=== PATIENT | female | born 1935 | race Caucasian/White ===

== ENCOUNTER 2019-02-16 18:59 | Inpatient (IN) | payer OTHER, MEDICARE ==
[~2019-02-16] VITALS: Ht 172.7 cm; Wt 66.0 kg
[2019-02-16] MEDS ORDERED: ZOLOFT25 MG PO (21:51)
[2019-02-16] MEDS ORDERED: VESICARE 5 MG TA5 MG (21:52)
[2019-02-16] MEDS ORDERED: VITAMIN B-12500 MCG PO (21:55)
[2019-02-16] MEDS ORDERED: ATIVAN0.5 MG PO ×3 (21:58→22:02)
[2019-02-16] MEDS ORDERED: TYLENOL325 MG PO (22:04)
[2019-02-16] MEDS ORDERED: IPRAT-ALBUT 0.5-3 ML INH (22:07)
[2019-02-16] MEDS ORDERED: TIAZAC PO (22:12)
[2019-02-16] MEDS ORDERED: LASIX 20 MG TAB20 MG PO (22:13)
[2019-02-16] MEDS ORDERED: FLECAINIDE ACET50 M1 PO (22:13)
[2019-02-16] MEDS ORDERED: MEMANTINE HCL E14 MG PO (22:15)
[2019-02-16] MEDS ORDERED: KLOR-CON 1010 MEQ PO (22:16)
--- NOTE | 2019-02-17 03:38 | NUR ---
ARRIVED A DIRECT ADMIT FROM [facility] ER VIA [facility] X2 EMT ON A STRETCHER @ 20:15 ON 02/16/19. ADMITTING DIAGNOSIS MAJOR NEUROCOGNITIVE AND BEHAVIOR DISORDERS. DNR WITH DAUGHTER HEIDE TORREZ. REFERRED TO [facility] FOR VEIGN VERY AGITATED, YELLING AT STAFF CALLING OFFENSIVE NAMES, INCREASED DEMENTIA AND STAFF AT N.. AT [facility] STRUGGLING TO MANAGE PT MED CHANGES. VS 112/88 93 64 18 93% ON RA WEIGHT 143.3 POUNDS ON BED SCALE. PIN SIZE WHOLE IN SKIN ON COXXYX. BRUISE TO R KNEE AND L LE, BRUISE TO RIGHT WRIST. SLEPT FOR SEVERAL HOURS, THEN AWOKE AND REQUESTED FOOD, SNACK PROVIDED. QUIETED DOWN FOR AN HOUR THEN AWOKE, WAS CONFUSED AND AGITATED AND ANXIOUS, PROVIDED 0LANZAPINE 5MG FOR AGITATION AND LORAZEPAM 0.5MG FOR ANXIETY. PROVIDED ANOTHER SNACK, AN ENSURE BEVERAGE AT PT REQUEST, SHE RELAXED AND SLEPT. BED IN LOW POSITION AND ALARM ON, WILL CONTINUE TO MONITOR Q12 MIN FOR PATIENT SAFETY.
[2019-02-17 04:57] VITALS: BP 112/88
--- NOTE | 2019-02-17 06:21 | NUR ---
SLEPT 5.2 HOURS
[2019-02-17] MEDS ORDERED: VITAMIN D1000 UNI1 PO (07:51)
[2019-02-17] MEDS ORDERED: RIVASTIGMINE3 MG PO (07:53)
[2019-02-17] MEDS ORDERED: MELATONIN3 MG PO (07:54)
[2019-02-17] MEDS ORDERED: ZANTAC 150MG T150 MG PO (07:55)
[2019-02-17] MEDS ORDERED: COUMADIN 2.5MG2.5 M1 PO (07:55)
[2019-02-17 08:00] VITALS: BP 118/58
[2019-02-17 14:03] LABS: INR 2.8; PROTIME 29.5 Seconds (9.3-11.4)
[2019-02-17 14:56] VITALS: BP 118/80
--- NOTE | 2019-02-17 16:48 | NUR ---
PATIENT HIGH FALL RISK - UNSTEADY ON FEET. NEEDS MONITORING WHEN AMBULATING WITH WALKER. TOOK MEDICATIONS READILY TODAY. NO AGITATION OR AGGRESSION OR YELLING NOTED. DOES BECOME RESTLESS AND WANDERS NEEDING REDIRECTION. NEEDS ENOCURAGEMENT AND HELP WITH MEALS. PATIENT DENIES ANY S/I - CONFUSED - ANSWERS EVERYTHING DON'T KNOW WHAT TO DO NEXT. PATIENT SLEPT FOR AN HOUR IN AFTERNOON. DOES NOT KNOW HER LIMITATIONS - DR. PABON SPOKE WITH DAUGHTER ON MEDICAITON RECONCILATION. MADE ADJUSTMENTS.
[2019-02-17 19:26] VITALS: BP 140/58
--- NOTE | 2019-02-17 21:37 | NUR ---
Pt restless in day room this eloy. Up and down from chair, pt is redirectable with min assistance. Pt provided w/c for self propel, pt very unsteady with walker. Pt compliant with hs meds and assisted with hs snack. Pt tried to drink from her straw and lick her ice cream. Pt compliant with bsc and hs adl care. Good eye contact, blunted affect. Speech clear but sentences not comprehensible.
--- NOTE | 2019-02-17 22:00 | NUR ---
PT AWAKENED WHEN FIREWORKS STARTED. PT WAS CALLING OUT AND TOOK MY HAND HELD IT AND WIHT HER OTHER HAND WAS OPENING AND CLOSING THE HAND. PT STARTED POINTING AT HER THIGHS AND GRIMACED, PRN TYLENOL PROVIDED.
--- NOTE | 2019-02-17 23:35 | NUR ---
Daughter called stating she will be in tomorrow with a list of previous medications. She stated Dr Benson is no longer her mothers dr at the [facility] facility. She also stated she does not want her mother on sinement.
[2019-02-18 08:23] VITALS: BP 110/70
--- NOTE | 2019-02-18 15:07 | NUR ---
ORIENTED TO NAME ONLY-SPEECH/CONVERSATION GARBLED AND DIFFICULT TO FOLLOW-INCOMPREHENSABLE AT TIMES AT TIMES RELEVENT AND GOAL DIRECTED. AMBULATES WITH USE OF ROLLER WALIKER AND SBA X 1-DENIES C/O PAIN DISCOMFORT-ABLE TO FEED SELF.
--- NOTE | 2019-02-18 18:30 | NUR ---
DID BECOME AGITATED AFTER SONS DEPARTURE FROM UNIT AT 1700-REFUSING TO EAT,RUNNING WHEELCHAIR INTO TABLES IN DINING ROOM-RAISED VOICE AND ANGRY FACIAL EXPRESSION-SAT 1;1 WITH PATIENT FOR APPROX 55 MINUTES OFFERING SUPPORT,REASSURANCE AND REORIENTATION. ZYPREXA 5MG ODT GIVEN PO AT 1730-CALMER BY APPROX 1830-GIVEN LATE SUPPER TRAY AND ASSISTED TO BED
[2019-02-18 19:16] VITALS: BP 116/54
--- NOTE | 2019-02-19 00:47 | NUR ---
PATIENT LAYING AWAKE I DID ROOM CHECK ON PATIENT. SHE MOTIONED TO HER LEFT LEG AND INDICATED PAIN OR DISCOMFORT. PATIENT UNABLE TO GET APPROPRIATE WORDS TO USE. REPOSITIONED PATIENT AND MASSAGED LEG. NO WARM/RED SPOTS. PATIENT WAS ABLE TO SAY YES WHEN ASKED IF SHE WOULD LIKE SOMETHING FOR PAIN. TYLENOL 650MG GIVEN WITH YOGURT AND WATER. PATIENT WAS BACK TO SLEEP WITHIN 10 MINUTES AND SLEEPING SOUNDLY. WILL CONTINUE TO MONITOR.
--- NOTE | 2019-02-19 01:45 | NUR ---
PT TALKING OUT LOUD. WENT TO CHECK ON HER. SAT HER UP AND SHE VOIDED IN BSC. PLACED PATIENT BACK IN BED AND SHE GROANED AND SAID HER LEFT LEG WAS HURTING. ASSESSED IT AND SEEMS TO BE GENERALIZED IN HER THIGH/KNEE AREA. HURT TO RUB BUT NOT RED OR WARM SPOTS. NO SOB. REPOSITIONED AND PLACED PILLOW UNDER IT WHICH DID BRING GREAT RELIEF. PATIENT THEN STATES SHE IS HUNGRY. FED PATIENT A VANILLA YOGURT. SHE DOESN'T MAKE MUCH SENSE WHEN SHE TALKS BUT SHE KEPT SAYING SHE IS JUST OLD AND SHE IS NOW 89 YEARS OLD AND THERE'S NOTHING THAT CAN BE DONE FOR HER ACHES AND PAINS. PATIENT RESTLESS. GAVE HER OLANZAPINE 5MG ODT PRN AND COVERED HER WITH EXTRA BLANKET BECAUSE SHE WAS COOL SHE SAID. PATIENT ANSWERS YES WHEN ASKED IF SHE IS COMFORTABLE NOW. LET HER KNOW I WOULD BE BACK TO KEEP CHECKING ON HER AND THAT SHE IS SAFE. PATIENT SAYS THANK YOU. WILL CONTINUE TO MONITOR.
[2019-02-19 11:13] VITALS: BP 123/63
--- NOTE | 2019-02-19 11:24 | NUR ---
ASSUMED CARE AT 0700 THIS MORNING. PT. UP IN W/C ON UNIT FOR BREAKFAST AND MORNING MEETINGS. IS NOT FEEDING HERSELF, SHE IS TOO DISORGANIZED. STAFF ASSISTED HER IN EATING. SPEECH IS WORD SALAD AND GARBLED. SHE WILL SIT AND LISTEN WHEN YOU TALK TO HER IF SHE UNDERSTANDS WHAT YOU ARE SAYING AND IS ABLE TO FOLLOW SIMPLE COMMANDS. DID ATTEND MORNING MEETINGS, BUT UNABLE TO PARTICIPATE. SHE SAT AND LISTENED THOUGH. AT TIMES SHE LOOKED IF SHE WOULD LIKE TO DO THE OTHER PATIENTS DID (STRETCHING EXERCISES), BUT UNABLE TO DO MUCH. VSS. NO S/S SI/HI. UNABLE TO DETERMINE IF PT HAS AUDITORY OR VISUAL HALLUCINATIONS OR NOT. MEDICATIONS WERE CRUSHED AND PUT IN PUDDING. SHE DID EAT THE PUDDING WITHOUT PROBLEMS NOTED.
--- NOTE | 2019-02-19 16:54 | NUR ---
PT was unable to complete psysocial assessment with ADRIANNA. However Merly, Pt's daughter was avaliable by phone to complete the assessment. Sw completed assessment with Merly. Merly and her brother Andres are have completed a medicaid application on Pt's behave. They have cricket dealing with mediciad for the past 7 months. According to Merly, Pt has battled depression and Anxiety since the age of 20. Pt was seeing a phychiatrics at [facility] until Pt went to SNF about 2 years ago. Adrianna assured Merly, that Pt has been calm today and engaged when encountered. Merly had no other questions or concerns at this time.
[2019-02-19 19:31] VITALS: BP 114/50
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
[2019-02-20 07:00] VITALS: BP 108/56
[2019-02-20 10:40] VITALS: BP 108/56
--- NOTE | 2019-02-20 11:34 | NUR ---
ASSUMED PATIENT CARE AT 0715. PATIENT ASSISTED UP X 1 STAFF, ATE 75%-90% OF BREAKFAST. TOOK MEDICATIONS WHOLE IN YOGURT WITH SIPS OF WATER. SAT THROUGH RECREATIONAL THERAPY; NURSE DID NOT GET REPORT FROM R.T. TO PATIENT'S PARTICIPATION. NURSE RE-ASSESSED PATIENT'S EARS WITH DR. PABON'S OTOSCOPE, WAX REMAINING, WHICH APPEARS SOFT. HOWEVER, NO IRRIGATION TOOLS AVAILABLE, PER DIRECTOR NEWS AND PHARMACY. PATIENT CALM, COMOPERATIVE, NO AGITATION OR IRRITATION TO DATE THIS SHIFT. CONTINUE TO MONITOR.
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
[2019-02-20 19:18] VITALS: BP 133/63
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
--- NOTE | 2019-02-21 00:41 | NUR ---
Care assumed of patient at 1900: Patient up in w/c at start of shift in day room. Patient anxious at times. Patient propelling w/c about the unit and in other patient rooms. Requiring re-direction occasionally. Patient reporting that she does not feel well. Patient unable to state what is bothering her to not feel well. VS stable. Patient ate 25% snack provided. Declined to eat her dinner. Patient took medication with no issues. Patient confused and forgetful. No aggression or agitation observed this shift. Patient was able to follow simple one step directions. Patient overall pleasant and cooperative. Patient went to bed without difficulty. Patient woke up at approximately 2355 with one episode of emesis. Moderate amount of emesis, light brown in color. Patient had ate peanut butter and crackers earlier in the evening. Patient cleaned up and linens changed. Patient reported that she felt better and would go back to sleep. Patient is resting quietly at this time.
[2019-02-21 01:31] LABS: HEMATOCRIT 35.3 % (37.0-47.0); HEMOGLOBIN 11.7 gm/dL (12.0-15.0); MCH 29.6 pg (26.0-34.0); MCHC 33.1 g/dL (28.0-37.0); MCV 89.5 fL (80.0-100.0); RBC 3.95 mil/uL (4.20-5.00); RDW 15.1 % (10.5-14.5); WBC 10.2 thou/uL (4.0-11.0)
[2019-02-21 01:39] LABS: PROTIME 13.9 Seconds (9.3-11.4)
[2019-02-21 01:41] LABS: INR 1.3
[2019-02-21 08:32] VITALS: BP 108/57
[2019-02-21 14:50] VITALS: BP 133/63
--- NOTE | 2019-02-21 15:01 | NUR ---
ASSUMED CARE AT 0700 TODAY. PT. IN BED ASLEEP AFTER N&V MOST OF THE NIGHT. SHE REFUSED TO GET UP FOR BREAKFAST, SLEPT ALL MORNING. THE ONELY MEDS THIS RN WAS ABLE TO GET HER TO TAKE THIS MORNING WAS OLANZAPINE. DR. PABON AND HOSPITALIST NOTIFIED OF SAME. AT LUNCH THIS RN WENT IN AND GOT PT. DRESSED AND BROUGHT HER TO THE DINING ROOM. SHE ATE ABOUT 50% LUNCH. HER SKIN TOME IS PALE. SHE SAT ON THE UNIT THIS AFTERNOON. SHE HAD ICE CREAM FOR 2 PM SNACK. SHE WAS AWAKE AND ALERT ALL AFTERNOON, SITTING QUIETLY. AMANDA SI/HI. NOT NOTABLE S/S AVH NOTED. DID NOT ATTEND AFTERNOON GROUP THOUGH.
[2019-02-21 19:43] VITALS: BP 120/70
--- NOTE | 2019-02-21 22:29 | NUR ---
ASSUMED CARE OF THE PT AT 1900 PM. THE PT WAS SITTING IN THE DAYROOM IN HER WHEELCHAIR. SHE TOOK HER MEDICATIONS CRUSHED IN APPLESAUCE WITHOUT ANY DIFFICULTY. HEART RATE REGULAR. LUNGS CLEAR BILATERALLY, RESP., EVEN, AND UNLABORED. +BS HEARD IN ALL 4 QUADRANTS. REMAINS ON 12 MINUTE CHECKS FOR HER SAFETY.
--- NOTE | 2019-02-22 06:27 | NUR ---
THE PT SLEPT 9 HOURS LAST NIGHT.
--- NOTE | 2019-02-22 09:14 | NUR ---
0720: Report rec from noc shift, care assumed. 0900: Assisted x2 staff with transfer from bed to w/c, cooperative with staff. To via w/c, oriented to name, minimal verbal response from pt when inquiring about pain or needs. Feeds self with set-up assist and encouragement to eat, takes meds crushed in applesauce w/o difficulty. Denies nausea or stomach discomfort. Attends 0900 group, pleasant, minimal participation noted.
[2019-02-22 09:19] VITALS: BP 94/67
--- NOTE | 2019-02-22 16:12 | NUR ---
ADRIANNA met with the Health Coordinator at [facility]. ADRIANNA was told that the pt may not be acceptable to the [facility]. ADRIANNA explained that if the pt was not given a proper notice jjuliane, she would have to be accepted into [facility] or there will be hotline to [facility]. The healthcare coordinator mention that she will follow-up with SW after speaking with the adminstrator. ADRIANNA will follow-up with [facility] on tomorrow, February 23, 2019
--- NOTE | 2019-02-22 16:24 | NUR ---
ADRIANNA sent a securities consultant to [facility] to assist with comfort care.
[2019-02-22 19:21] VITALS: BP 111/61
--- NOTE | 2019-02-23 00:41 | NUR ---
Care assumed of patient at 1900: Patient resting in bed at start of shift. Staff offered to assist patient get up out of bed and have a snack in the day room. Patient stated she would like to get up. Max assist x2 provided for transfer to /. Patient ate approximately 75% snack. Enjoyed sitting with other peers and staff. Patient took medications crushed without any issue. Patient pleasant and cooperative. Patient had periods where she would speak clearly then others where she was speaking word salad. Patient encouraged to slow down and focus. Patient apologetic. She was then able to answer questions more clearly. Patient anxious at times when speaking with her. Confused and forgetful. Attempted to suck on spoon like it was a straw when eating jello. Required occasional directions while eating. Alert and oriented to person only. Blunted affect, disorganized thoughts. Patient incontinent of bladder. Patient again apologetic, stating that it is hard to be "89 something years old". No agitation or aggression observed this shift. Resting quietly in bed at this time.
[2019-02-23 07:49] VITALS: BP 136/55
--- NOTE | 2019-02-23 07:55 | NUR ---
0700: Report rec from noc shift, care assumed. Resting in bed, laying on Rt side, bed alarm on, bedrails up x4, awakens readily to verbal stimuli. Skin cool, color pale. 0800: Assisted to w/c from bed with assist x2 staff, pt weak, minimal weight bearing noted, confused, oriented to name only, but cooperative with staff. To via w/c
[2019-02-23 20:14] VITALS: BP 148/72
--- NOTE | 2019-02-23 20:38 | NUR ---
ASSUMED CARE @ 1900, SITTING IN W/C IN FRONT OF THE TV. DOES NOT SEEM TO BE WATCHING TV, JUST LOOKING FORWARD INTO THE ROOM. A&O X 1 ABLE TO VERBALIZE HER FIRST NAME ONLY. SPEACH RAMBLING, BLUNTED AND DIFFICULT TO UNDERSTAND. INCONTINENT, NO BM TODAY. TAKES MEDS CRUSHED IN PUDDING. VSS HRRR, LUNGS CTA, AABD NORMOACTIVE. HX OF COFFEE GROUND EMESIS. NO EMESIS TODAY. WILL CONTINUE TO MONITOR Q 12 MINUTES.
--- NOTE | 2019-02-23 23:44 | NUR ---
SCHEDULED MEDICATIONS PROVIDED. PRN MORPHINE S.L. 10 MG PROVIDED @ 22:20. OLANZAPINE S.L. PROVIDED @ 22:20. ONDONSTATEN 4 MG PROVIDED FOR NAUSEA. EAR DROPS INSTILLED WITHOUT DIFFICULTY. NO BEHAVIORS NOTED. WILL CONTINUE TO MONITOR Q 12 MINUTES FOR PATIENT SAFETY.
[2019-02-24 07:15] VITALS: BP 119/56
[2019-02-24 07:30] VITALS: BP 119/56
--- NOTE | 2019-02-24 07:30 | NUR ---
PT OUT TO DINNING ROOM. PT HAS SMILE OF FACE. PT IN W/C WITH AARON SAINZ. RIDING TEACHER STATED THAT SHE HAD A BM THIS AM MED AMOUNT. PT HAS ISSUES WITH HER STOMACH AND COMPLAINING PAIN, STATED IT HURTS DOWN.
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
--- NOTE | 2019-02-24 14:30 | NUR ---
PT UP TO BSC TO PASS GAS. PT STATED SHE DOESN'T FEEL GOOD. PT HOLDING STOMACH. PT SLOW TO GETTING UP AND TURNING, UP X2 ASSIST. PT STATED SHE WOULD LIKE TO LAY DOWN. PT BELCHING AT TIMES.
--- NOTE | 2019-02-24 14:56 | NUR ---
AFTER SITTING ON BSC, PT HAD MED BM SOFT. PT LAYED DOWN FOR NAP AFTER USING BSC.
--- NOTE | 2019-02-24 16:16 | NUR ---
SW sent a referral to [facility] per family request. ADRIANNA will follow-up with [facility] to see if pt can be evaluated on tomorrow, February 25, 2019.
--- NOTE | 2019-02-24 16:50 | NUR ---
AYDIN HERE TO VISIT. PT VERY HAPPY FOR THE VISIT. PT HAD SOME SPIT UP OF YELLOW/GREEN BILE TWICE.
--- NOTE | 2019-02-24 17:00 | NUR ---
ASSISTED PT UP TO W/C. PT HAVING SOME BELCHING. GAVE PT DIET LEMON-PILOT POINT SODA AND SALTINE CRACKERS, PT WAS VERY APPRICIATED.
[2019-02-24 19:29] VITALS: BP 120/72
--- NOTE | 2019-02-24 22:17 | NUR ---
PT ASLEEP IN W/C IN DAY ROOM UPON ARRIVAL TO SHIFT. HS MEDS PROVIDED AND PT LAYED DOWN TO BED WITH ALARM ON. POOR EYE CONTACT WITH INTERACTIONS, BLUNTED AFFECT.
[2019-02-25 09:09] VITALS: BP 104/42
--- NOTE | 2019-02-25 10:55 | NUR ---
0700: Report rec from noc shift,care assumed. 0800: Assisted to w/c from bed with staff x1, gait weak. To DR via w/c, feeds self with set-up assist, appetite poor, takes 1-2 bites of food, takes meds crushed in pudding with difficulty and resistance. Cooperative with staff,affect is flat, short attentions span and confusion noted. 0900: To therapy group, minimal participation noted. Denies nausea or discomfort at this time.
--- NOTE | 2019-02-25 13:59 | NUR ---
ADRIANNA sent a referral to [facility] per the [facility][1] request. ADRIANNA spoke with Zhanna in she mention she revievew the referral, and will be in contact on February 28, 2019.
--- NOTE | 2019-02-25 14:32 | NUR ---
Date of Admission: 02/16/19 Date of Activity Therapy Assessment: 02/19/19 Activity Goal: Increase engagement Initial Goal: 1 Group activity/day Weekly progress towards goal: On track Group participation level: Minimal Behaviors observed: Patient participates in a minimum of 1 recreational therapy group per day though participation is minimal d/t low cognition. Patient presents smiling and pleasant. No aggression noted. Plan: No change towards goal
[2019-02-25 19:40] VITALS: BP 112/59
--- NOTE | 2019-02-25 23:34 | NUR ---
PT AWAKENED TO URINATE ASSISTED TO BSC AND COMPLIANT. PT RETURNED TO BED, YELLING OUT THAT SHE WANTS TO BE YOUNG, CRYING SPEECH NOT CLEAR,CURSING. KICKING LEGS, PRN PAIN PROVIDED. STAFF SAT WITH PT FOR DIVERSIONAL CONVERSATION, OFFERED SNACKS, BEHAVIOR DID NOT SETTLE PRN FOR AGIATION PROVIDED.
--- NOTE | 2019-02-26 01:30 | NUR ---
PT REMAINED AWAKE RESTLESS TALKING TO SELF AND WAS TAKEN TO DAY ROOM FOR DISTRACTION AND A SNACK. ONCE PT WAS FALLING ASLEEP IN DAY ROOM, SHE WAS ASSISTED BACK TO BED.
[2019-02-26 07:30] VITALS: BP 99/43
--- NOTE | 2019-02-26 10:09 | NUR ---
ASSUMED PATIENT CARE AT 0700. PATIENT DRESSED,ASSIST TIMES ONE. ATE 75% OF BREAKFAST, BLUNT FACIAL EXPRESSION, FLAT AFFECT, DROSY MOOD. TOOK A.M. MEDICATIONS WHOLE WITH WATER. SAT THROUGH A.M.GROUP, NON-PARTICIPATORY.
[2019-02-27 00:39] VITALS: BP 99/43
--- NOTE | 2019-02-27 04:12 | NUR ---
PT OUT IN DAY AREA AT [facility] OF SHIFT, BUT ON THE EDGE OF THE GROUP. SUSPICIOUS, BUT TOOK HS MEDS PRESCRIBED. ALLOWED STAFF TO ASSESS, AND DO VS. ESCORTED TO ROMM AND ASSISTED WITH TOILETING. SLEPT WELL THROUGH THE NIGHT
[2019-02-27 08:00] VITALS: BP 107/46
--- NOTE | 2019-02-27 11:41 | NUR ---
ASSUMED CARE OF PT @ 0700. ASSISTED W/AM CARE W/ASSIST OF ONE. TRANSPORT VIA WHEELCHAIR - MOANING AND COMPLAINING OF GENERALIZED PAIN THIS AM -RECEIVED PRN MEDS PER ORDER. RESTED QUIETLY FOLLOWING WITHOUT FURTHER DISTRESS NOTED. ATTENDING AM GROUP W/NO PARTICIPATION. VISITOR PRESENT DURING VISTATION. NO ACUTE DISTRESS NOTED. CONTINUE TO MONITOR THROUGHOUT SHIFT.
--- NOTE | 2019-02-27 15:19 | NUR ---
ADRIANNA sent updates to [facility] [phone] ([phone] and [facility] [phone] (f) [phone]
--- NOTE | 2019-02-27 18:02 | NUR ---
SPENT MAJORITY OF SHIFT IN DAYROOM. EASILY AGITATED BY PEERS WHEN STIMULI IS INCREASED. STAFF ATTEMPTED REDIRECTION VERBALLY AND REMOVED TO QUIETER AREA BUT INTERVENTIONS WERE NOT SUCCESSFUL IN DECREASING AGITATION AND PT RECEIVED GEODON IM PRN PER ORDER WHICH WAS EFFECTIVE IN REDUCING AGITATION. MARYAN CARE PROVIDED PRN. NO ACUTE DISTRESS NOTED. CONTINUE TO MONITOR.
[2019-02-27 22:00] VITALS: BP 109/60
[2019-02-27 23:00] VITALS: BP 109/60
--- NOTE | 2019-02-28 01:32 | NUR ---
ASSUMED CARE @ 19:00. IN W/C IN DAY ROOM. PROPELLING SELF IN W/C AROUND THE FRONT OF THE ROOM UNDER THE TV SET. TOOK 2100 MEDS CRUSHED IN ICE CREAM. LAID DOWN @ 22:30, EYES CLOSED RESPIRATIONS EVEN AND UNLABORED. AWOKE @ 0030 C/O FEELING BAD. GIVEN [place] 4 MB ODT AND MORPHINE SULFATE 10 MG. CONTINUES TO BE AWAKE AND C/O FEELING BAD, CANNOT SAY WHAT FEELS BAD. TOILETED ON THE BSC, URINE OUTPUT NOTED. RETURNED TO BED. WILL CONTINUE TO MONITOR.
--- NOTE | 2019-02-28 01:37 | NUR ---
INCREASED AGITATION AND PHYSICAL VIOLENCE NOTED. NEW ORDER FOR HALDOL IM 5 MG OBTAINED FROM Dell ARANGO [employer] HE[employer] NURSING DIRECTOR AND PROVIDED WITH X3 ADDITIONAL ASSIST. WILL CONTINUE TO MONITOR.
--- NOTE | 2019-02-28 03:56 | NUR ---
IN BED EYES CLOSED, RESPIRATIONS EVEN AND UNLABORED. BED IN LOW POSITION, ALARM SET, WILL CONTINUE TO MONITOR Q 12 MINUTES FOR PT SAFETY.
--- NOTE | 2019-02-28 05:57 | NUR ---
SLEPT 6.4 HOURS TOTAL.
[2019-02-28 07:55] VITALS: BP 109/57
[2019-02-28 13:24] VITALS: BP 109/57
--- NOTE | 2019-02-28 17:04 | NUR ---
ADRIANNA spoke with pt daughter concerning sending a referral to [facility]. SW mention that she will send a referral on tomorrow, February 28, 2019. ADRIANNA explained that there need to be referrals sent to [facility]. ADRIANNA explained that [place] medicaid is causing [facility] to deny her mother. SW will follow-up with pt family on later this week.
--- NOTE | 2019-02-28 17:56 | NUR ---
ASSUMED CARE AT 0700 THIS MORNING. PT. CALM MOST OF THE DAY. ABOUT 1645 SHE STARTED FUSSING AT A PEER, POUNDING ON THE TABLE, STATING NO ONE WILL HELP HER. SHE COULD NOT STATE WHAT THE HELP SHE NEEDED WAS. SHE WAS GIVEN SL OLANZAPINE AT 1730. SHE WANDERS INTO PEERS ROOMS AND IS IRRITABLE WHEN SHE WAS REMOVED FROM THE ROOMS. NO S/S SI/HI OR AVH. TOOK MEDS WITHOUT PROBLEMS FOR THIS RN.
[2019-02-28 20:13] VITALS: BP 110/60
[2019-02-28 23:30] VITALS: BP 110/60
--- NOTE | 2019-03-01 01:53 | NUR ---
ASSUMED CARE @ 1900, IN W/C WITH AARON SAINZ IN PLACE IN THE DAY ROOM. COOPERATED WITH ASSESSMENT AND HS MEDS IN PUDDING. A&O X 1 CONFUSED TO DATE, LEADERSHIP AND REASON FOR HOSPITALIZAITON. MARKO IS CONFUSED AND UNCLEAR. WILL CONTINUE TO MONITOR Q 12 MINUTES FOR PATIENT SAFETY.
--- NOTE | 2019-03-01 05:16 | NUR ---
Patient was assisted to bed at 2030 on 02/28/19. Patient asked for the lights to be kept on. The lights were kept on. Patient changed into a gown, assisted to the bathroom then tucked into bed. Patient did state she was tired and wanted to lay down. Patient sat up soon after and started to yell. Staff asked patient if she wanted to get back up, patient yelled no. Patient attempting to stand and walk independently. Patient would not allow for staff to assist her. Patient continued to scream at staff, kick at staff and hit staff. Multiple staff attempted to re-direct patient. Not effective. Nurse administered Geodon 10mg IM at 2102. Nurse sat with patient for approximately 10 minutes, talking to her, trying to calm her down and divert her attention. Patient was able to fall asleep at approximately 2130 and has been resting quietly throughout the shift. Patient's daughter did call at 0500 this AM. Daughter asked if patient had been tested for a UTI. UA was completed at [facility] on 02/15/19 prior to admission which was negative for UTI. Will pass on to day shift RN.
--- NOTE | 2019-03-01 06:08 | NUR ---
SLEPT 9 HOURS.
[2019-03-01 09:07] VITALS: BP 106/42
[2019-03-01 09:58] VITALS: BP 106/42
--- NOTE | 2019-03-01 10:12 | NUR ---
ASSUMED CARE AT 0700 THIS MORNING. PT. IN THE DINING ROOM, PULLED DOWN HER PANTS AND URINATED ON THE FLOOR. STAFF TOOK HER TO THE BATHROOM. SHE HAD A LARGE BOWEL MOMENT. SHE WAS CLEANED UP AND TAKEN TO THE DINING ROOM FOR BREAKFAST. SHE ATE ON THE UNIT. TOOK HER MEDS WITHOUT PROBLEMS NOTED. DENIES SI/HI. BUT TALKS ABOUT HEARING VOICES.
[2019-03-01 20:20] VITALS: BP 102/56
--- NOTE | 2019-03-02 06:14 | NUR ---
PATIENT SLEPT 7.2 HOURS LAST NIGHT.
[2019-03-02 08:00] VITALS: BP 116/63
--- NOTE | 2019-03-02 11:17 | NUR ---
Nutrition: pt seen per followup on [facility] unit. Vomiting is resolved and pt eating variable amounts of meals, average 50%. Per team meeting this morning pt took more initiative/showed more interest at breakfast in feeding self. Takes sporadic amounts of supplements. WIll trial ensure enlive in addition to ensure pudding due to fair intake. Weight is up 4# from previous eval. Pt on lasix and pointed out fluid retention in legs. Regular diet, would not rec further diet restrictions in hospice pt. Change status to low risk.
--- NOTE | 2019-03-02 12:06 | NUR ---
ADRIANNA sent a referral to [facility]. ADRIANNA attn: to Luc Calixto. ADRIANNA will follow-up with the [facility] on tomorrow, March 03, 2019. Pt is ready to d/c once accepted into [facility].
--- NOTE | 2019-03-02 14:21 | NUR ---
Date of Admission: 02/16/19 Date of Activity Therapy Assessment: 02/19/19 Activity Goal: Increase self esteem and social engagement Initial Goal: 1 Group activity/day Weekly progress towards goal: On track Group participation level: Minimal Behaviors observed: Patient attends most morning groups though she falls asleep nearly every group upon beginning to end. Patient often exhibits frustration and agitation in the afternoon, making attendance to groups minimal. Plan: No change towards goal
--- NOTE | 2019-03-02 15:03 | NUR ---
ASSUMED PT CARE REPORT RECEIVED FROM NURSE. PT IS VERY CONFUSED. OUT OF BED WITH NURSING STAFF HELP. PT REMAINS ON WHEELCHAIR DURING DINING TIME. VSS. PT DENIES PAIN. PT LOOKS DROWSY IN THE EARLY AM. NO COMPLAINT. WILL CONTINUE TO MONITOR
--- NOTE | 2019-03-02 17:03 | NUR ---
pt abdomen is distended and pt vomited small amount of yellow vomit. zofran and mylanta given.
[2019-03-02 19:32] VITALS: BP 160/91
--- NOTE | 2019-03-02 20:21 | NUR ---
PATIENT SITTING UP IN BED. PATIENT HAD ZOFRAN AT 1500 AND MYLANTA AT 1700. PATIENT WITHOUT NAUSEA OR VOMITING BUT STATES ACHY ALL OVER. COOL TO TOUCH AFEBRILE. BLE'S WITH 2+ NONPITTING EDEMA, COOL TO TOUCH. TRYING TO ENCOURAGE BM. HAS HAD GAS PAINS TODAY AND SMALL BM ACCORDING TO DAY REPORT. HAD PATIENT'S HEAD ELEVATED 45 DEGREES UP AND ELEVATED FEET. PATIENT MORE COMFORTABLE ON RIGHT SIDE. TYLENOL 650MG WITH APPLESAUCE GIVEN. TOOK HALF OF CRUSHED DOSE AND SIP OF WATER. COULD NOT TOLERATE ANYMORE BY PO. SPOKE WITH INSTALLER TECHNICIAN'S REGARDING KEEPING PATIENT COMFORTABLE AND HOB AND FEET ELEVATED D/T EDEMA, N/V FROM EARLIER TODAY. WILL REMEDICATE NEEDED AT NEXT AVAILABLE MED TIME. MONITORING PATIENT CLOSELY. BOWEL SOUNDS ACTIVE LEFT UPPER ABDOMEN QUAD AND HYPO IN OTHER 3 QUADS.
--- NOTE | 2019-03-02 23:04 | NUR ---
THIS EVENING PATIENT IS STILL RESTING IN BED. MEDS WERE GIVEN CRUSHED AND IN MYLANTA. PATIENT ABLE TO TOLERATE SMALL SIPS OF WATER. PATIENT HAS BEEN REPOSITIONED IN BED BUT FAVORS HER RIGHT SIDE AND MOVES HERSELF INTO THIS POSITION. PATIENT GETS NAUSEATED AND HURTS WHEN MOVED AROUND. HAS NOT VOIDED OR BEEN ABLE TO GET UP TO BSC. BLADDER SCAN SHOWS 178 ML IN BLADDER. BOWEL SOUNDS NOW MORE ACTIVE IN ALL 4 ABDOMEN QUADS. PATIENT DID VOMIT UP SMALL YELLOW STOMACH BILE AFTER SIPPING MYLANTA. ZOFRAN SL GIVEN AND PATIENT TOLERATED WELL. MORPHINE PRN SL GIVEN WITH HS MEDS. PATIENT STATES SHE IS FEELING A LITTLE MORE COMFORTABLE. FEET STILL WITH 2+ EDEMA ELEVATED IN BED. HOB ELEVATED UP 45 DEGREE ANGLE. CONTINUING TO MONITOR.
[2019-03-02 23:50] VITALS: BP 160/91
--- NOTE | 2019-03-03 14:59 | NUR ---
PATIENT WAS UP IN WHEELCHAIR WITH ASSIST OF STAFF FOR BREAKFAST, APPETITIE POOR "I DON'T WANT ANY OF THAT TO EAT". SHE STAYED UP FOR GROUP, TOOK A QUICK NAP AFTER GROUP. WHEN AWAKEN, PATIENT WAS NAUSIATED, AND HAD SMALL EMESIS. PRN ZOFRAN GIVEN, WITH POSITIVE EFFECT. PATIENT REFUSED LUNCH, REQUESTED TO LAY DOWN. PATIENT TAKING SIPS OF WATER. PATIENT CURRENTLY IN BED TAKING A NAP. PATIENT IS NOT ABLE TO RESPOND APPROPRIATELY TO ASSESSMENT QUESTIONS DUE TO COGNITIVE IMPAIREMENT. [facility] CAME [facility] TODAY TO ASSESS PATIENT, WILL REPORT BACK TO THEIR FACILITY AND THEY WILLL LET US KNOW. VIDHI LOWER EXTREMITY ELEVATED IN BED, WILL MONITOR FOR SAFETY.
--- NOTE | 2019-03-03 17:02 | NUR ---
ADRIANNA met with Evangelista roque and he completed an assessment of this pt. He reported that he would be getting in contact with the family and this SW once a decision is made regarding placement.
[2019-03-03 19:59] VITALS: BP 96/73
--- NOTE | 2019-03-04 01:10 | NUR ---
NURSES NOTE - PATIENT IS ALERT AND ORIENTED X1-2 AT TIMES. DURING INTIAL GREETING PATIENT WAS IN WC IN DAY ROOM WITH HEAD DOWN MINIMALLY COMMUNICATING WITH OTHER PATIENTS. SHE APPEARS WITH A FLAT AFFECT. THIS NURSE ASKED ASSESSMENT QUESTIONS AND SHE WOULD RESPOND WITH SHORT ANSWERED RESPONSES. SHE WAS PLEASANT DURING TIME OF ASSESSMENT, YET HER MOOD IS LABILE THROUGHOUT THE EVENING. AT APPROXIMATELY 0112 SHE HAD A LARGE LOOSE BM. SHE DID NOT REPORT SI HI THOUGHTS, SHE DID NOT REPORT MEDICAL CONCERNS, NOR DID SHE APPEAR TO BE IN DISTRESS. NURSING WILL MAINTAIN ALL PRECAUTIONS TO ENSURE SAFETY AT ALL TIMES.
[2019-03-04 07:00] VITALS: BP 117/45
--- NOTE | 2019-03-04 11:11 | NUR ---
Pt was denied admission to [facility]. Rep Martin [phone] stated that this was due to excessive behaviors. He also stated he had called the family and left them a VM. Sw will follow up with family
--- NOTE | 2019-03-04 16:44 | NUR ---
ASSUMED PT CARE AT 0700. PT WITH FLAT AFFECT, CALM. AMBULATES BY W/C. MEDS ARE CRUSHED AND GIVEN WITH APPLESAUCE OR PUDDING, PT HAS HAD NO EMESIS TODAY, DID HAVE A LARGE BM THIS AM. AUDITORY HALLUCINATIOS NOTED. WILL CONT POC.
--- NOTE | 2019-03-04 17:12 | NUR ---
Curtis spoke with pt's daughter at length about the diffiucalty of placing her mom in a secure unit that is memory care and takes medicaid pending. Curtis provided her with 5 more communities to call and visit, and Curtis will send referrals to them on Thursday.
[2019-03-04 19:45] VITALS: BP 124/65
--- NOTE | 2019-03-04 23:09 | NUR ---
ASSUMED CARE OF THE OF THE PT AT 1915 PM. THE PT WAS IN THE DAYROOM WHEN THIS KIER HAND CAME ON DUTY. ALERT ET ORIENTED X 3. MAKES NEEDS KNOWN. TOOK HER HS MEDICATIONS WITHOUT ANY DIFFICULTY. THE PT HAD A LARGE BM THIS SHIFT AND WAS TOILETED BEFORE SHE HAD TO GO TO THE BATHROOM. SHE ATE HER HS SNACK. HEART RATE REGULAR. LUNGS CLEAR BILATERALLY, RESP., EVEN, AND UNLABORED. +BS HEARD IN ALL 4 QUADRANTS. SHE HAD EMESIS X 2 THIS SHIFT. REMAINS ON 12 MINUTE CHECKS FOR HER SAFETY.
[2019-03-05 17:23] VITALS: BP 114/68
--- NOTE | 2019-03-05 18:34 | NUR ---
AAOX1 ONLY CONFUSED AND DIFFICULT TO UNDERSTAND SPEECH. ATE ALL 3 MEALS IN DINNING ROOM. POOR APPETITE. FAMILY HERE TO VISIT TODAY.
[2019-03-05 20:21] VITALS: BP 120/76
--- NOTE | 2019-03-06 03:44 | NUR ---
NURSE NOTE - ASSUMED CARE AT 1900. PATIENT IS ALERT AND ORIENTED X1. UPON ASSESSMENT SHE WAS IN THE DAY ROOM WATCHING TV WITH OTHER PATIENTS MINIMALLY INTERACTING. SHE AT FIRST APPEARS WITH A FLAT AFFECT, WHEN THIS NURSE INITIATED CONVERSATION SHE APPEARED TO SMILE AND MAINTAINED A SHORT CONVERSATION. SHE DENIED SI HI AND HALLUCINATIONS. SHE DID NOT REPORT ANY MEDICAL CONCERNS AND DOES NOT APPEAR TO BE IN DISTRESS. NURSING WILL MAINTAIN ALL PRECAUTIONS TO ENSURE SAFETY AT ALL TIMES.
--- NOTE | 2019-03-06 06:35 | NUR ---
PATIENT SLEPT 8 HOURS PER [employer]
[2019-03-06 07:00] VITALS: BP 107/55
--- NOTE | 2019-03-06 10:47 | NUR ---
ADRIANNA called [facility] [phone] to request some more SNF to send referrals to. She requested that updated notes be sent to [facility] [phone], [facility] [phone], [facility] [phone] and [facility] [phone]. She reported that the medicaid application had been recieved and now had escalation status.
--- NOTE | 2019-03-06 14:51 | NUR ---
AAOX1 CONFUSED AND FORGETFUL. REFUSES TO EAT STATES ALL OF THE FOOD IS TERRIBLE. IN DINING ROOM MOST OF DAY. ATTENDED GROUPS AND ATE MEALS IN DINING ROOM. FLAT AFFECT PLEASANT AND COOPERATIVE.
[2019-03-06 19:41] VITALS: BP 137/69
--- NOTE | 2019-03-06 23:25 | NUR ---
ASSUMED CARE OF THE PT AT 191 PM. THE PT WAS LYING IN BED, SHE KEPT TRYING TO GET OUT OF THE BED, ASSISTED HER TO THE WHEELCHAIR AND THEN WE TOOK HER TO THE DAYROOM, WHERE SHE TOOK HER HS MEDICATIONS AND THEN WE ASSISTED THE PT BACK TO BED AFTER A COUPLE OF HOURS, THEN WHEN SHE WAS IN BED, SHE WAS BANGING THE BED, SHAKING THE LOWER RAILS. SCREAMING AT STAFF, "GET ME OUT OF HERE." CONTINUED TO BE AGITATED. MEDICATED THE PT WITH GEODON 10 MG IM TO HER LEFT HIP. AFTER RECEIVING HER SHOT, SHE STOOD UP BEDSIDE THE BED, ASSISTED THE PT TO THE WHEELCHAIR AND ASSISTED HER TO THE DAYROOM. REMAINS ON 12 MINUTE CHECKS FOR HER SAFETY.
--- NOTE | 2019-03-07 01:19 | NUR ---
ASSUMED CARE OF THE PT AT 191 PM. THE PT WAS IN BED WHEN THIS BANQUET LEAD CAME ON DUTY. HEART RATE REGULAR. LUNGS CLEAR BILATERALLY, RESP, EVEN, AND UNLABORED. DENIES SI/HI/A/D/ A/V HALLUNICATIONS. REMAINS ON 12 MINUTE CHECKS FOR HER SAFETY.
--- NOTE | 2019-03-07 17:10 | NUR ---
ADRIANNA recieved a call from [facility] who informed they will not be able to accommodate the Pt's needs and would not be accepting Pt. ADRIANNA recieved a call from Ayesha at [facility]. Ayesha informed they will be sending out a clinical team this week to assess Pt for placement. Ayesha did not give a specific day .
--- NOTE | 2019-03-07 18:29 | NUR ---
[id number]: Report rec from noc shift, care assumed. To DR art w/c, declines a.m. meal, resists staff feeding her, meds given crushed in applesauce. Garbled speech noted, oriented to name only, only able to follow simple instructions, forgetful. Attends 0900 therapy group, this nurse assisted pt with exercise group, accepting of help from this nurse. 1200: Resistant to meal and to staff to assist. 1600: Dtr Merly here to see pt, update given and questions answered. No behaviors noted this shift.
[2019-03-07 19:22] VITALS: BP 133/77
[2019-03-07 23:49] VITALS: BP 133/77
--- NOTE | 2019-03-08 03:26 | NUR ---
PT QUIET THIS PM. ALLOWED STAFF TO ASSESS AND TO GIVE HER EVENING MEDS. ESCORTED TO BED AFTER SNACKS AND MEDS. SLEPT WELL THROUGHT THE NIGHT, W/O INCIDENT.
[2019-03-08 06:59] LABS: CALCIUM 9.2 mg/dL (8.5-10.1); CREATININE 0.8 mg/dL (0.6-1.0); POTASSIUM 3.9 mmol/L (3.5-5.1)
[2019-03-08 07:30] VITALS: BP 99/43
[2019-03-08 08:57] VITALS: BP 99/43
--- NOTE | 2019-03-08 16:19 | NUR ---
PATIENT IS FORGETFUL, AND CONFUSED. REQUIRES ASSIST OF TWO STAFF TO TRANSFER FROM W/C TO BED. PATIENT IS TOTOAL CARE NEED ASSIST OF STAFF TO COMPLET ADKL. PATIENT TOOK ALL HER MEDICATION CRUSHED IN PUDDING WITHOUT DIFFICULTY. APPETITE GOOD, CONSUMED 100% BREAKFAST, HAD ABOUT 25% LUNCH. PATIENT DENIES SUICIDAL AND HOMCIDAL IDEATION. PATIENT REFUSES TO RESPOND APPROPRIATELY TO FURTHER ASSESSMENT QUESTIONS. PATIENT PARTICIPATING IN GROUP THERAPY. SHE DECLINE HAVING PHYSICAL PAIN. PATIENT HAD LARGE FORMED BOWEL MOVEMENT TODAY, NO AGGRESSION OR AGITATION NOTED AT THIS TIMES, WILL MONITOR FOR SAFETY.
[2019-03-08 19:44] VITALS: BP 97/54
--- NOTE | 2019-03-08 23:42 | NUR ---
NURSES NOTE - KIMMIE IS ALERT AND ORIENTED TO SELF, SHE IS COOPERATIVE IN THE DAY ROOM AND INTERACTING WITH OTHER PEERS. SHE IS PLEASANT DURING ONE TO ONE WITH PATIENT APPEARS WITH A EUTHYMIC AFFECT ET MOOD. SHE DENIES SI HI AND HALLUCINATIONS. SHE DID NOT VERBALIZE ANY MEDICAL CONCERNS AND DOES NOT APPEAR TO BE IN DISTRESS. SHE USES WC ON THE UNIT. THIS NURSE AND DIRECTOR OF CATEGORY MANAGEMENT PUT PT IN BED FOR HS, SHE DID APPEAR IN PAIN AND MORPHINE PRN WAS GIVEN TO PATIENT. CURRENTLY UPON REASSESMENT VISUALLY PATIENT IS IN BED WITH EYES CLOSED AND DOES NOT APPEAR TO BE IN DISTRESS. NURSING WILL MAINTAIN ALL PRECAUTIONS TO ENSURE SAFETY AT ALL TIMES.
[2019-03-09 08:20] VITALS: BP 104/64
--- NOTE | 2019-03-09 11:35 | NUR ---
Seen for follow up on [facility] unit. On regular diet w/ very sporadic meal and supplement intakes. Often eating 5-25% of meals, 40% at breakfast today. Did consume 100% Ensure pudding this AM. Will continue pudding (4 g protein), but stop Ensure enlive d/t poor completion. Staff state "just wants to play in her food," doesn't want to eat. Per SW, will need 24 hr care at home or explore [place] placement more aggressively. Attempted to obtain food preferences, but limited feedback from pt. States liking PB, cottage cheese. Plan: send PB w/ Khmer muffins, added cottage cheese w/ peaches at dinner, start Beneprotein modulars into potatoes (6 g per pkt). Low nutrition risk as new interventions in place, and likely limited nutrition progress in a hospice pt.
--- NOTE | 2019-03-09 13:43 | NUR ---
Date of Admission: 02/16/19 Date of Activity Therapy Assessment: 02/19/19 Activity Goal: Increase self esteem and social engagement Initial Goal: 1 Group activity/day Weekly progress towards goal: Did not achieve goals Group participation level: Minimal Behaviors observed: Patient participates in afternoon groups when awake. Participation is minimal d/t low cognition, though patient is usually accepting of assistance. Agitation has decreased. Plan: Offer 1:1 visits if patient sleeps through groups
[2019-03-09 14:48] VITALS: BP 104/64
--- NOTE | 2019-03-09 14:54 | NUR ---
ASSUMED CARE AT 0700 TODAY. PT. UP IN W/C. ATE MEALS ON THE UNIT. SHE ALWAYS TELLS STAFF SHE IS HUNGRY BUT WHEN HER FOOD COMES SHE POURS THE LIQUIDS ALL OVER THE TABLE AND FLOOR, SHE PUTS HER HANDS IN PUDDINGS, SAUCES, AND GRAVYS AND SMEARS IT ALL OVER THE PLACE. WHEN STAFF ATTEMPT TO CLEAN IT UP SHE WILL SAY, "HEY, I WANTED THAT! WHY ARE YOU TAKING THAT. SHE EATS 20% OR LESS OF EACH MEAL BEFORE SHE STARTS TO PLAY WITH THE FOOD. WHEN ASKED WHY SHE DID NOT EAT THE FOOD, SHE WILL SAY, "I DON'T WANT THAT!" SHE POUNDED HER FIST ON THE TABLE WHEN THE STAFF DID NOT RETURN HER TRAY. ATTENDED GROUPS, BUT UNABLE TO PARTICIPATE MUCH. CONTINIUES TO BE DISORGANIZED, FORGETFUL, UNABLE TO ALWAYS COMMUNICATE WITH STAFF. SHE TALKS IN WORD SALAD SOME OF THE TIME, BUT AT TIMES CAN MAKE HER NEEDS UNDERSTOOD. HER MEDICATIONS ARE CRUSHED AND PUT IN PUDDING OR ICE CREAM SO PT. WILL TAKE IT. OTHERWISE SHE WILL SPIT IT OUT AND NOT TAKE IT AT ALL. SHE WANDERS ABOUT THE UNIT IN HER W/C. SHE IS UNABLE TO WALK ON HER OWN SHE IS TOO UNSTEADY ON HER FEET.
[2019-03-09 19:34] VITALS: BP 130/68
--- NOTE | 2019-03-09 21:37 | NUR ---
KIMMIE BECAME COMBATIVE WITH STAFF, HITTING AND THROWING ITEMS AT THEM, BECOMING DISRUPTIVE IN THE MILIEU. PRN GEODON ORDERED WAS GIVEN. PATIENT CONTINUES TO BE BELIGERENT AND CONTINUES TO STATE 'I HATE YOU YOU BITCHES.' WILL CONTINUE TO MONITOR MOOD AND BX.
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
--- NOTE | 2019-03-10 00:56 | NUR ---
KIMMIE REPORTED TO THIS NURSE THAT 'I JUST HURT ALL OVER.' THIS NURSE ADMINISTERED MORPHINE ORDERED. WILL MONITOR FOR S/S OF PAIN. FACIAL GRIMACING WAS NOTICED
[2019-03-10 08:01] VITALS: BP 127/55
--- NOTE | 2019-03-10 11:24 | NUR ---
HAS BEEN VISIBLE IN DAYROOM SITTING WITH PEERS SO FAR THIS SHIFT. CONVERSATION RELEVENT TO TOPIC WITH NOTED WORD FINDING DIFFICULTIES WILL BECOME FRUSTRATED/UPSET WITH THIS. SMILING AND APPRECIATIVE OF HELP OFFERD BY STAFF "OH THANK YOU SO MUCH" OR "THAT IS GOOD I LIKE THAT"TRANSFERS WITH SBA L3-3-[id number] OF SMALL AMOUNT OF URINE-OTHERWISE IS ABLE TO ALERT STAFF WHEN NEEDING TO GO TO BATHROOM. DOES REPORT PAIN "ALL OVER" TYLENOL SCHEDULED GIVEN PER ORDER WITH VERBALIZED FAIR RELIEF.
--- NOTE | 2019-03-10 16:49 | NUR ---
CURTIS and Dr. verma had a meeting with the family concerning referral to [place] [facility]. CURTIS explained that she will send a referral to [facility] in [place] to see if pt can be accepted by Medicaid. Curtis explained that she would like to speak with the pt son Andres concerning [facility]. CURTIS left a voicemail for Andres, and provided contact information. CURTIS requested a phone call back. CURTIS will follow-up with Merly concerning d/c.
[2019-03-10 17:02] LABS: ABSOLUTE NEUTROPHILS 4.6 thou/uL (1.4-8.2); BASOPHILS 0.7 % (0.0-2.0); EOSINOPHILS 1.7 % (0.0-3.0); HEMATOCRIT 36.4 % (37.0-47.0); HEMOGLOBIN 12.2 gm/dL (12.0-15.0); LYMPHOCYTES 28.3 % (24.0-44.0); MCHC 33.5 g/dL (28.0-37.0); MCV 89.4 fL (80.0-100.0); MONOCYTES 6.7 % (1.0-8.0); PLATELET COUNT 346 thou/uL (150-400); POLYS 62.6 % (36.0-66.0); RBC 4.07 mil/uL (4.20-5.00); RDW 16.5 % (10.5-14.5); WBC 7.4 thou/uL (4.0-11.0)
[2019-03-10 17:33] LABS: URINE BILIRUBIN NEGATIVE (Negative); URINE BLOOD NEGATIVE (Negative); URINE CLARITY CLEAR; URINE COLOR YELLOW; URINE GLUCOSE-RANDOM* NEGATIVE (Negative); URINE KETONES NEGATIVE (Negative); URINE LEUKOCYTES-REFLEX NEGATIVE (Negative); URINE NITRITE-REFLEX NEGATIVE (Negative); URINE PROTEIN (DIPSTICK) NEGATIVE (Negative); URINE SPECIFIC GRAVITY >= 1.030 (1.005-1.035)
[2019-03-10 19:31] VITALS: BP 126/58
--- NOTE | 2019-03-10 22:39 | NUR ---
PT ASLEEP IN W/C WITH LAP BELT IN DAY ROOM UPON ARRIVAL TO SHIFT. PT ASSISTED TO BED. PT COMPLIANT WITH MEDS AND HS SNACK. BLUNTED AFFECT, GOOD EYE CONTACT WHEN STAFF TALKING WITH PT. PT INTERACTED NON VERBALLY THIS HUNG DURING MED PASS AND SNACK. BLE EDEMA +4 CONTINUES.
[2019-03-11 07:20] VITALS: BP 89/48
--- NOTE | 2019-03-11 15:21 | NUR ---
ADRIANNA spoke with the pt son Andres on a conference calls, and daughter Merly concerning applying for [place] Medicaid, and sending referrals to [place] memory care facilities. SW mention that she will follow-up up from Andres to see if the [place] Medicaid was accepted.
--- NOTE | 2019-03-11 15:54 | NUR ---
ADRIANNA sent a referral to [facility] for enrollemnt of [place] Medicaid.
[2019-03-11 19:36] VITALS: BP 124/52
--- NOTE | 2019-03-12 02:17 | NUR ---
Care assumed of patient at 1915: Patient alert and oriented to person. Patient disoriented to current location, time and situation. Patient has been resting in bed this shift. Patient has been turning and changing positions significantly when in bed, independently. Patient has been in a new position every 2 hours. Patient has 1+ pitting edema present to bilateral lower extremities. Patient reports legs feel "tight". Patient calm, pleasant and cooperative. Patient would occasionally smile at staff but was otherwise flat and watching roomate. Patient has a booth/pale skin tone to her face. Patient denies pain or discomfort. Denies SI/HI/AH/VH. No delusional or paranoia behaviors observed. Patient incontinent bladder x2 at this time. Patient took medication whole in applesauce without difficulties. Patient offered HS snack but declined. Patient resting quietly in bed at this time.
[2019-03-12 08:30] VITALS: BP 119/70
[2019-03-12 15:05] VITALS: BP 101/50
--- NOTE | 2019-03-12 19:13 | NUR ---
LATE NOTE: PATIIENT OBSERVED VERY LETHARGIC AT DINNER. COULD NOT SIT UP STRAIIGHT AT DINNER. NURSE ASSISTED PATIENT WITH EATING; HOWEVER, PATIENT ATE VERY LITTLE AND MOST OF MEATLOAF THAT WAS PUT IN HER MOUTH WAS SPIT OUT. DRANK ONLY PART OF HER SUPPLEMENT. SEE SUPPLEMENT CHARTING ON A SEPARATE PAGE.
--- NOTE | 2019-03-13 01:14 | NUR ---
Care assumed of patient at 1915: Patient resting in bed at start of shift. Patient appears drowsy. Patient easily aroused. Patient compliant with assessment. Patient denies pain or discomfort. Denies SI/HI/AH/VH. No s/s of delusional or paranoia behaviors. Patient reported to another nurse that she felt she was going to tonight in her sleep. Patient took HS medication crushed without difficulty. Patient assisted changing positions in bed every 2 hours. Patient denies any concerns or goals for this shift. Patient reports she "is just tired". No inappropriate behaviors observed this shift. Remains at baseline cognition of being alert and oriented to person only. Patient resting quietly in bed at this time.
--- NOTE | 2019-03-13 01:24 | NUR ---
THIS NURSE ENTERED PATIENTS ROOM PATIENT SAW THIS NURSE WALKING BY. SHE WAS IN BED WITH EYES MOSTLY CLOSED BUT COULD IDENTIFY WHO THIS NURSE BY NAME. SHE STATED TO THIS NURSE THAT SHE FELT 'HORRIBLE AND I DONT KNOW IF ILL LIVE THROUGH THE NIGHT, I LOVE YOU VERY MUCH.' SHE FURTHER REPORTED 'IM SCARED.' AND ASKED THIS NURSE TO HOLD HER HAND FOR AN EXTENDED TIME. PT THANKED THIS NURSE AND ASSURED HER I WOULD CHECK IN ON HER THROUGHOUT THE NIGHT.
--- NOTE | 2019-03-13 03:16 | NUR ---
THIS RN WAS ROUNDING ON PATIENTS AND PT CALLED THIS RN INTO ROOM. SHE ASKED 'AM I DYING, DO YOU THINK IM DYING? IM SCARED TO EVEN GO TO SLEEP BECAUSE IM SCARED I MIGHT NOT WAKE UP.' THIS NURSE OFFERED REASSURANCE TO PT. SHE ALSO APPEARED TO HAVE FACIAL GRIMACING AND REPORTED 'I HURT ALL OVER I JUST DONT KNOW WHAT TO DO, I FEEL SO AWFUL.' THIS NURE OFFERED PRN PAIN MEDICATION WHICH WAS GIVEN TO PATIENT. CURRENTLY SHE IS IN BED WITH EYES CLOSED. RR EVEN AND UNLABORED. NO S/S OF DISTRESS. WILL CONTINUE TO MONITOR.
--- NOTE | 2019-03-13 06:16 | NUR ---
THIS NURSE REASSESSED KIMMIE AFTER SHE AWOKE WANTING TO GO OUT TO THE DAY ROOM. SHE WAS ABLE TO SPEAK WITH THIS RN MAKING COMPLETE SENTENCES EVEN IF THEY DIDNT FIT THE SITUATION AT HAND. SHE IS SMILING AND LAUGHING AND ASKING QUESTIONS AND APPEARS WITH A BRIGHT AFFECT. VSS, SHE IS CALM AND COOPERATIVE. WILL CONTINUE TO MONITOR.
[2019-03-13 09:20] VITALS: BP 104/73
[2019-03-13 14:33] VITALS: BP 104/73
--- NOTE | 2019-03-13 14:44 | NUR ---
ASSUMED CARE AT 0700 THIS MORNING. PT. CONTINUES TO BE CONFUSED, DISORIENTED. SHE COMPLAINS OF BEING HUNGRY BUT WHEN THE FOOD ARRIVES, SHE STATES SHE CANNOT EAT THAT STUFF. SHE WILL PLAY IN HER FOOD AND AT ONE TIMES ATTEMPTED TO THROW HER FOOD, BUT WAS STOPPED BY STAFF. HER MEDICATIONS WERE CRUSHED AND PUT IN PUDDING OR APPLESAUCE. SHE INITIALLY WANTED TO PUSH THE NURSES HAND AWAY. BUT WITH PERSISTANCE, SHE WILL TAKE HER MEDICATIONS. SHE SAT IN THE ROOM DURING GROUPS BUT WAS NOT A PARTICIPANT IN THE GROUPS. SHE ASKED STAFF TO LAY HER DOWN AFTER LUNCH, BUT GOT RIGHT OUT OF BED AGAIN WHEN STAFF LAYED HER DOWN. NO S/S HI/SI OR AVH NOTED TODAY. SHE IS ALERT AND ORIENTED TIMES 1.
[2019-03-13 21:58] VITALS: BP 101/74
--- NOTE | 2019-03-14 00:18 | NUR ---
PT IN DAY ROOM IN W/C WITH LAP BELT, PT RESTLESS, SITTING AND STANDING, TAKING OFF BELT, REQUESTED TO USE RESTROOM. BSC PROVIDED, PT REQUESTED TO GOTO BED. PT WAS FOCUSED ON FEMALE TECH STATING SHE WAS OUT TO CAUSE HER HARM AND BE MEAN AND NOT TO LEAVE HER ALONE. PT REDIRECTED AND SUPPORTED AND PT FELL ASLEEP. COMPLIANT WITH HS MEDS. GOOD EYE CONTACT, CLEAR SPEACH, FLAT AFFECT.
--- NOTE | 2019-03-14 15:16 | NUR ---
BECAME AGITATED AND IRRITABLE AROUND 1200-DISTRACTION,PRN MEDS,TOILETING,REPOSITIONING ATTEMPTED BUT AGITATION ESCLATES INTO THROWING ITEMS OFF OF LUNCH TRAY AT PEERS,YELLING-STRIKING OUT AT STAFF-DOES STATE HER LEGS HURT-MINIMAL RELIEF WITH NORCO 5/325 1/2 TAB GIVEN AT 0900. MORPHINE SULFATE 10MG GIVEN SUBLINGUAL HOWEVER PT BITING AT SYRINGE,SPITTING OUT LIQUID MED-GEODON 10MG IM GIVEN IN LEFT DELTOID AT 1300-FEET,ANKLES LE SWOLLEN APPROX 2-3 PEDALEDEMA-HARD [id number] REDNESS/WARMTH,INDURATION OBSERVED
--- NOTE | 2019-03-14 19:13 | NUR ---
DID REST IN ROOM THIS PM FROM APPROX. [id number] STOMACH HURTING-ABDOMEN IS NOTED TO BE DISTENDED-BS HYPERACTIVE-LARGE SOFT BM IN COMMODE -FREQUENT FLATULANCE-DID EAT WELL AT SUPPER BUT AFTER MEAL VOMITTED SMALL AMOUNT UNDIGESTED FOOD-ZOFRAN 4MG ODT GIVEN-BS HYPERACTIVE X4-
[2019-03-14 19:24] VITALS: BP 143/81
--- NOTE | 2019-03-14 19:32 | NUR ---
MAIL SUPERINTENDENT HOSPITALIST NOTIFIED OF NURSE MANAGER OF DRILLING REQUEST TO REVIEW CHRONIC EDEMA CONCERNS AND MEDICATIONS. ALSO NOTIFIED PT VOMITTED ON DAY SHIFT. ABD DISTENDED.
--- NOTE | 2019-03-14 22:31 | NUR ---
PT ASLEEP IN BED UPON ARRIVAL TO SHIFT. PT EASILY AWAKENED AND SMILING TELLING STAFF THAT THEY ARE BEAUTIFUL AND SMILING. PT COMPLIANT WITH HS MEDS PUDDING AND WATER. NO C/O PAIN OR NAUSEA. PT AWAKENED AT 2130 AND STATED SHE NO LONGER WANTED TO BE STUCK HERE. PT ASSISTED TO W/C AND TAKEN TO DAY ROOM TO SIT [facility] STAFF. PT ASLEEP IN CHAIR BUT SITTING WITH STAFF. LAP BELT ON W/C.
--- NOTE | 2019-03-15 11:09 | NUR ---
ASSUMED PATIENT CARE AT 0700. PATIENT WAS AWAKE IN BED AT THAT TIME. NURSE RESPONDED TO PATIENT'S BEDSIDE, PATIENT VERY SWEET AND CALM. ASSISTED UP TO W/C TO DINING ROOM, WHERE SHE SAT QUIETLY AWAITING BREAKFAST. MEDICATIONS ARE CRUSHED, GIVEN IN PUDDING TODAY. COMPLIANT WITH MEDICATIONS WITH SIPS OF WATER IN BETWEEN BITES OF PUDDING/MEDICATIONS. POTASSIUM CHLORIDE CANNOT BE CRUSHED, HOWEVER, PATIENT SWALLOWED IN PUDDING WITHOUT DIFFICULTY. FLAT AFFECT, CALM MOOD, NO BEHAVIORS DISPLAYED.
--- NOTE | 2019-03-15 11:10 | NUR ---
ADRIANNA spoke with [facility] to schedule an evaluation for admission to on March 15, 2019.
[2019-03-15 15:25] VITALS: BP 140/64
[2019-03-15 17:55] VITALS: BP 140/64
[2019-03-15 19:42] VITALS: BP 81/49
--- NOTE | 2019-03-15 20:25 | NUR ---
RECEIVED REPORT FROM OFFGOING DAY NURSE, ASSUMED CARE @ 1900 ON 03/15/19. IN BED EYES CLOSED, RESPIRATIONS EVEN AND UNLABORED. HRRR, LUNGS CTA ALL CHOI, ABD NORMOACTIVE X 4 Q.
[2019-03-15 23:39] VITALS: BP 81/49
[2019-03-16 06:18] VITALS: BP 81/49
[2019-03-16 06:46] VITALS: BP 81/49
[2019-03-16 07:59] VITALS: BP 88/53
[2019-03-16 10:38] VITALS: BP 88/53
--- NOTE | 2019-03-16 11:49 | NUR ---
Nutrition followup: pt continues on regular diet with po intake 0-25% of meals typically. Nsg reports 50% this am however. Pt is receiving ensure enlive and ensure pudding BID. Intake is also sporadic, refuse to 25%. Beneprotein being offered at dinner in potatoes. Providing food preferences daily. Confused and unable to interview. Current weight down 2# from admit, not significant. Continue low nutrition risk due to hospice pt and interventions in place.
--- NOTE | 2019-03-16 15:23 | NUR ---
ADRIANNA spoke with Marybeth from [facility] concerning admission. Marybeth mention that she in running pt assets to see if she qualify, and will let me know if pt will be acceted into [facility] on March 17, 2019. ADRIANNA will follow-up with Marybeth on tommorrow.
--- NOTE | 2019-03-16 17:22 | NUR ---
ASSUMED CARE AT 0700 THIS MORNING. PT. UP ON UNIT FOR MEALS, GROUPS, MEDICATIONS. MEDS ARE CRUSHED AND PLACED IN APPLESAUCE OR PUDDING. SHE HAS BEEN COOPERATIVE WITH THIS. SHE CONTINUES TO TELL STAFF SHE DOES NOT WANT TO EAT THE FOOD IT DOES NOT TASTE GOOD TO HER, ENCLUDING ICE CREAMS, PUDDINGS, COFFEE, ETC. SHE TAKES ABOUT 2 OR 3 BITES OF HER FOOD AND EITHER WANTS TO THROW IT OR PUSH IT AWAY. STAFF ATTEMPTS TO HELP HER WITH NO LUCK. SHE TRIES TO TELL STAFF SOMETHING, STARTS A SENTENCE BUT CANNOT FINISH IT. HER THOUGHTS TRAIL OFF AND ONTO ANOTHER SUBJECT. SHE IS ASKED REPEATEDLY BY STAFF TO HELP THEM UNDERSTAND WHAT IT IS SHE WANTS THEM TO KNOW, BUT SHE CANNOT COMPLETE A THOUGHT. HER SPEECH IS RELATIVELY CLEAR BUT RAMBLES. SHE CONTINUES TO BE CONFUSED, SOMEWHAT IRRITABLE. SHE WAS GIVEN PRN MORPHINE TODAY WHEN SHE WAS BECOMING AGITATED. SHE SHOOK HER HEAD YES TO THE QUESTION OF IF SHE WAS IN PAIN AND PAIN MED. WAS GIVEN TO HER. SHE THEN BECAME MORE PLEASANT IT WORKED WITH NO NOTIBLE AGITATION.
[2019-03-16 19:09] VITALS: BP 98/48
--- NOTE | 2019-03-16 21:05 | NUR ---
PT ASLEEP IN W/C IN DAY ROOM. WHEN PT ASSISTED TO BED SHE STATED SHE DID NOT WANT TO BE THERE AND WAS ATTEMPTING TO GET OUT OF BED. PT RETURNED TO W/C IN DAY ROOM AND PT RETURNED TO SLEEPING. W/C LAP BELT IN USE. PT COMPLIANT WITH MEDS AND ADL CARES. SPEECH CLEAR, GOOD EYE CONTACT. CONTINUES WITH BLE EDEMA.
[2019-03-17 07:21] VITALS: BP 120/78
--- NOTE | 2019-03-17 07:30 | NUR ---
PT UP IN W/C WITH AARON SAINZ. PT STATED SHE WAS HUNGRY THIS AM. PT WANTING TO KNOW WHEN IS BREAKFAST. PT UP WITH ASSIST OF 1-2. PT HAS RAINA HOSE ON BILATERAL. PT ALSO HAS EDEMA TO PEDAL AND ANKLE. PT LUNGS CLEAR.
[2019-03-17 07:45] VITALS: BP 120/78
--- NOTE | 2019-03-17 08:30 | NUR ---
PT EATING BREAKFAST AND STATED SHE DON'T LIKE IT OR DON'T WANT IT, SHE IS EATING. PT NEEDING MEDS CRUSHED DUE TO CHEWING UP PILLS WHOLE. PT ENCOURAGED TO DRINK LIQUIDS.
--- NOTE | 2019-03-17 12:27 | NUR ---
Date of Admission: 02/16/19 Date of Activity Therapy Assessment: 02/19/19 Activity Goal: Increase self esteem and social engagement Initial Goal: 1 group per day or 1:1 if unable to engage in group Weekly progress towards goal: On track Group participation level: Minimal Behaviors observed: Patient continues to contribute minimally to groups, but is able to attend one group per day on average. CENTRAL STERILE TECH supplies patient with objects for fidgeting to decrease restlessness. Plan: No change towards goal
--- NOTE | 2019-03-17 13:00 | NUR ---
PT FINISHED LUNCH AND LAID DOWN FOR A NAP.
[2019-03-17 20:29] VITALS: BP 122/64
--- NOTE | 2019-03-18 01:21 | NUR ---
Care assumed at 1915: Patient alert and oriented to person. Patient confused and forgetful. Pleasant, cooperative, calm. Patient having delusional thoughts this evening. Word salad present at times. Patient patting a pillow next to her saying it was a "cute puppy". Patient holding a spoon in her hand talking about what to do with this hammer. Patient took medications crushed without difficulty. Patient reports that she does not care for the liquid anti-acid medication that was changed. Patient had small liquid bowel movement. Using bedside commode for toileting needs. Patient fussy and almost fearful at times. Provided comfort by speaking with her and holding her hand. Patient was assisted to bed and has been resting quietly.
[2019-03-18 09:37] VITALS: BP 133/110
--- NOTE | 2019-03-18 11:20 | NUR ---
REMAINS CONFUSED ORIENTED TO NAME ONLY. PLEASANT AND COOPERATIVE MOST OF THE TIME. POOR APPETITE. PROPELLS SELF IN WHEELCHAIR LAP BELT ON FOR SAFETY. FEET REMAIN EDEMATOUS 2+ EDEMA. VISITS WITH OTHER PATIENTS IN DINING ROOM.
[2019-03-18 19:38] VITALS: BP 105/56
--- NOTE | 2019-03-19 03:25 | NUR ---
NURSES NOTE - DURING INTIAL GREETING PT WAS IN THE DAY ROOMA PPEARING WITH A FLAT SAD AFFECT, MINIMALLY INTERACTING WITH OTHER PEERS. SHE WAS ABLE TO RECALL WHO THIS NURSE WAS. BUT IS ALERT AND ORIENTED X1-2. AT APPROXIMATELY 2100 SHE APPEARED TO BECOME INCREASINGLY CONFUSED AND STATED TO STAFF 'I HATE YOU YOURE THE WORST.' HER MOOD BECAME LABILE AND THEN MADE STATEMENTS SUCH 'NO I LOVE YOU.' WHEN MAKING STATEMENTS TO THIS RN SHE IS SPEAKING A WORD SALAD. SHE DID NOT REPORT ANY MEDICAL CONCERNS, TOOK MEDICATION PRESCRIBED CRUSHED. SHE HAS BILATERAL EDEMATOUS LOWER LEGS. NO PEDAL PULSES WERE PALPABLE. WILL CONTINUE TO MONITOR NEEDED.
[2019-03-19 08:00] VITALS: BP 133/113
--- NOTE | 2019-03-19 08:31 | NUR ---
PT UP WITH ASSISTANCE X1-2 PERSON FROM BED TO W/C. PT HITTING BED RAIL AND AGGITATED TO GET UP. PT HAS LAP EMELI FOR SECURITY IN W/C. PT DOESN'T TRY TO GET OUT OF W/C. PT LUNGS CLEAR, DIMINISHED TO BASES. PT NEEDS ENCOURAGEMENT TO EAT FOOD.
--- NOTE | 2019-03-19 10:00 | NUR ---
PT ASSISTED TO BSC X2 PERSONS. PT BRIEF DRY, PT VOIDED IN BSC AND PASSED GAS.
[2019-03-19 19:20] VITALS: BP 126/71
--- NOTE | 2019-03-19 21:50 | NUR ---
NURSES NOTE - KIMMIE IS ALERT AND ORIENTED X1-2. SHE IS ABLE TO RECALL THIS NURSE AND RECOGNIZE THIS RN BY NAME. UPON ASSUMING CARE OF PATIENT, SHE WAS OBSERVED IN THE DAY ROOM SPREADING WATER AND OTHER DRINKS AROUND THE TABLE. SHE WAS ATTEMPTING TO CLEAN IT UP, BUT STATED 'I FORGOT HOW.' SHE NEEDED SEVERAL PROMPTS TO MAINTAIN BX. SHE APPEARS WITH A CONFUSED AND FLAT AFFECT, BUT WILL SMILE WHEN ATTENTION IS GIVEN TO PATIENT. SHE TAKES HER MEDS CRUSHED AND IN LIQUID FORM. SHE REPORTS SHE DOES NOT LIKE, BUT IS COMPLIANT WITH ALL MEDICATIONS ORDERED. SHE DENIED MEDICAL CONCERNS WITH THIS NURSE BUT THIS NURSE OBSERVED PATIENT DISCUSSING WITH OTHER PATIENTS THAT SHE IS SCARED TO . SHE APPEARS PRE OCCUPIED IN ET DYING. NURSING WILL MAINTAIN ALL PRECAUTIONS TO ENSURE SAFETY AT ALL TIMES.
[2019-03-20 08:38] VITALS: BP 114/73
--- NOTE | 2019-03-20 08:53 | NUR ---
ASSUMED CARE OF PT APPROX 0715, ALERT TO SELF ONLY AT THIS TIME, REFUSES MEDS YET WHEN GENTLY COERCED TAKES MOST OF THEM WHOLE W/PUDDING, SEEMS TO AMB STEADY AT THIS TIME, SEE SEPARATE INTERVENTION FOR ASSESSMENTS. WILL CONTINUE TO MONITOR
[2019-03-20 20:14] VITALS: BP 136/86
[2019-03-21 00:32] VITALS: BP 136/86
--- NOTE | 2019-03-21 03:33 | NUR ---
PT OUT IN DAY AREA AT BEGINNING OF EVENING. RESTLESS, AND CONFUSED. RAMBLING MOSTLY INCOHERANT ATTEMPTS AT CONVERSATION. TOOK HS MEDS WITH ENCOURAGEMENT, AND ESCORTED TO ROOM AFTER SNACKS. CONTINUED RESTLESSNESS, WITH PT ATTEMPTING TO GET OUT OF BED. AFTER NUMEROUS ATTEMPTS TO HELP HER SETTLE, ASSISTED HER TO WC, AND SAT WITH PT IN DAY ROOM, LISTENING TO HER RAMBLE. OFFERED SNACK, REFUSED BY PT. FINALLY BECAME DROWSY AND RETURNED PT TO BED AROUND MIDNIGHT, AND HAS SLEPT TO THIS POINT.
[2019-03-21 07:15] VITALS: BP 99/66
[2019-03-21 13:41] VITALS: BP 99/66
--- NOTE | 2019-03-21 13:48 | NUR ---
ASSUMED CARE AT 0700 THIS MORNING. PT. UP ON THE UNIT FOR MEALS. SHE WAS STILL EATING AND/OR PLAYING IN HER FOOD GROUP WAS BEING CONDUCTED. SHE TAKES HER MEDICATIONS CRUSHED AND IN PUDDING OR APPLESAUCE. SHE IS COOPERATIVE WITH TAKING HER MEDICATIONS. SHE IS COOPERATIVE WITH STAFF. SHE REQUIRES HELP GOING TO THE BATHROOM. HER SPEACH IS TANGENTIAL. SHE STARTS ONE TRAIN OF THOUGHT AND FINISHES ON ANOTHER SUBJECT ENTIRELY. SHE IS IN A W/C WITH A LAP EMELI.
[2019-03-21 19:16] VITALS: BP 109/86
--- NOTE | 2019-03-22 | NUR ---
RECEIVED REPORT FROM OFFGOING DAY NURSE, ASSUMED CARE @ 1900.IN WHEELCHAIR IN DAY ROOM. PROPELLING HERSELF IN W/C THROUGHOUT THE ROOM. A&OX1-2. CONFUSED BUT PLEASANT. TOOK MEDICATIONS CRUSHED IN PUDDING. WILL CONTINUE TO MONITOR Q 12 MINUTES FOR PATIENT SAFETY.
--- NOTE | 2019-03-22 10:10 | NUR ---
ASSUMED PATIENT CARE AT 0700. PATIENT ASSISTED UP TIMES ONE STAFF. ZYPREXA NOW ORDERED IN LIQUID FORM, R/T CHEWING TABLETS. PATIENT IS UNABLE TO DRINK ZYPREXA LIQUID 40 MG. FIRST MIXED WITH THICKENED APPLE JUICE, TIMES TWO. V DRANK SMALL AMOUNT, REFUSED TO DRINK THE REST. NURSE ADDED CHOCOLATE ENSURE, PATIENT STILL STATING THAT SHE CANNOT DRINK IT. HAS ONLY HAD A SMALL AMOUNT. NURSE WITH PATIENT WITH HER MEDICATION, ENCOURAGING HER TO DRINK AND TAKE SIPS OF WATER IN BETWEEN. AT FIRST, BUT CURRENTLY REFUSING TO DRINK EITHER ONE.
[2019-03-22 10:39] VITALS: BP 149/86
--- NOTE | 2019-03-22 13:42 | NUR ---
PATIENT STATED THAT HURT ALL OVER; ADMINISTERED MORPHINE 10MG FOR PAIN. ORDER IS FOR 10MG FOR PAIN Q 1 HOUR FOR PAIN. MONITOR CLOSELY FOR PAIN.
--- NOTE | 2019-03-22 19:31 | NUR ---
LATE NOTE: NOTE MADE PREVIOUSLY AT 0730. HOWEVER, INCORRECT INFORMATION ON SOME OF THE NOTE. PATIENT WAS ASSISTED UP TIMES ONE TO DR FOR BREAKFAST. DOES NOT LIKE THE NEW LIQUID DOSE OF ZOFRAN, DRANK ABOUT 3/4.
--- NOTE | 2019-03-22 19:34 | NUR ---
PATIENT ADMINISTERED MORPHINE 10 MG AT 1530, PRN, FOR INDICATIONS OF PAIN. i.e., MOANING, HOLDING HER RIGHT LATERAL THIGH. RESULTS DIFFICULT TO ASSESS, SINCE PATIENT DOES NOT ANSWER QUESTIONS CONCERNING PAIN MEDICATIONS AND RESULTS.
[2019-03-22 20:18] VITALS: BP 105/64
--- NOTE | 2019-03-22 22:15 | NUR ---
RECEIVED REPORT FROM OFFGOING DAY NURSE, ASSUMED CARE @ 19:15. IN BED WITH EYES CLOSED, RESPIRATIONS EVEN AND UNLABORED. AWAKENED TO TOUCH AND TOOK HS MEDS CRUSHED IN PUDDING. 10MG OF MORPHINE SULFATE PROVIDED @ 10:10. TOLERATED WELL. REPOSITIONED AND PT RETURNED TO SLEEP. BED IN LOW POSITION, ALARM SET, WILL CONTINUE TO MONITOR Q 12 MINUTES FOR PATIENT SAFETY.
--- NOTE | 2019-03-23 05:27 | NUR ---
MORPHINE SULFATE GIVEN FOR PAIN, @ 04:45. CONTINUES TO BE AGITATED. SLEPT 9.6 HOURS. TOILETED, TRANSFERRED TO BS AND THEN TO W/C AND PROPELLED TO THE DAY ROOM.
--- NOTE | 2019-03-23 06:27 | NUR ---
PRN OLANZAPINE 5MG PROVIDED FOR AGITATION. WILL CONTINUE TO MONITOR.
[2019-03-23 07:49] VITALS: BP 101/58
[2019-03-23 08:00] VITALS: BP 101/58
--- NOTE | 2019-03-23 10:39 | NUR ---
Nutrition follow up: PO intake remains unchanged week to week. No progress, possibly even lower PO the last few days - 1 week. Averaging < 10% the last 3 days with 5%, 20%, occasionally 40% intake, but mostly meal refusal. Consuming 5-25% of 1-3 supplements/day, but refusing more often the last 2 days. Will attempt to switch/decrease supplement frequency. Will d/c Ensure pudding, keep Ensure Enlive daily at breakfast and add Magic Cup to dinner. Pt continues to receive Beneprotein packet on mashed potato days per supplement orders. Last BM 03/19. Pt not seen d/t ongoing confusion. Continue low nutrition risk given pt situation of being hospice, new trial of nutrition interventions in place.
--- NOTE | 2019-03-23 15:46 | NUR ---
Date of Admission: 02/16/19 Date of Activity Therapy Assessment: 02/19/19 Activity Goal: 1 group or 1:1 per day Initial Goal: Increase self esteem and social engagement Weekly progress towards goal: On track Group participation level: Minimal Behaviors observed: Passive participation in most groups. Continues to speak in word salad. Ocassional agitation, but redirectable with removal of stimulation. Plan: No change towards goal
--- NOTE | 2019-03-23 17:20 | NUR ---
assumed pt care report received from nurse pt is alert disoriented x4. screaming " help me"/ sitting in wheelchair at e table, agitated, anxious, restless. denies pain. vss. o2 saturation is 86% on ra. oxygen was monitored again during this shift and found to be in the 70s. routine oxygen support of 2 l nc was given temporary. o2 went up in the 80 s again. pt refuses to eat and took about half of her medicine in apple sauce. pt remains in wheelchair with chair belt on. pt assisted with care as needed. was given prn lorazepam and morphine as ordered. since then pt fell asleep in her wheelchair in activity room. pt was then transferred to her bed and positioned comfortably to sleep. will continue to monitor
[2019-03-23 19:47] VITALS: BP 86/49
--- NOTE | 2019-03-23 21:01 | NUR ---
MANUAL BLOOD PRESSURE TAKEN BY RN, 76/42. WILL CONTINUE TO MONITOR.
--- NOTE | 2019-03-23 21:06 | NUR ---
SP02 OBTAINED BY PULSE OXIMETRY, 77% ON RA, 2L OXYGEN APPLIED VIA NASAL CANNULA.
--- NOTE | 2019-03-24 03:37 | NUR ---
NURSES NOTE - THIS NURSE ASSUMED CARE OF PATIENT AT APPROXIMATELY 1915. SHE HAS BEEN IN BED THROUGHOUT THE SHIFT WITH EYES CLOSED, RR UNEVEN AND LABORED WITH DIMINISHED LUNG SOUNDS. SHE ALSO APPEARS TO BE USING ACCESSORY MUSCLES TO COMPLETE RESIPIRATIONS. HER EYES HAVE BEEN CLOSED, THROUGH THE EVENING. AT BEGINNING OF SHIFT VITAL SIGNS HOVERED 70'S/40'S, 14-15 RR, PULSES 40-50. ALL EXTREMITIES COLD TO THE TOUCH, AND EDEMATOUS BILATERAL LEGS. 02 SATURATION IS UNEVEN AND APPEARS UNSTABLE, THIS NURSE TOOK O2 SAT AT APPROXIMATELY 2030 SATURATION WAS 86%. THIS NURSE APPLIED 02 VIA NC AT 2L TO ASSIST IN COMFORT. RECHECKING OF 02 AT APPROXIMATELY 2300 WAS 94%. 02 WAS TAKEN OFF TO ALLOW PATIENT TO REST. PT WAS UNRESPONSIVE TO MY VOICE OR TOUCH THROUGH THE EVENING. THIS NURSE REASSESED PATIENT AT 0330 AND PATIENT DID LIFT EYE LIDS TO MY VOICE. NO S/S OF DISTRESS. THIS NURSE ENSURED ALL EXTREMITIES WERE COVERED AND ENSURED PATIENT WAS COMFORTABLE POSSIBLE. WILL CONT TO OBSERVE FOR PAIN/ANXIETY/SOA.
--- NOTE | 2019-03-24 05:17 | NUR ---
NURSES NOTE - PT AWOKE SCREAMING AND REACHING IN THE AIR, REPEATING 'HELP ME IM SCARED, HELP ME!' ATIVAN INTENSOL GIVEN ORDERED, LINENS CHANGED, AND PT CLEANED. WILL CONTINUE TO MONITOR FOR ANXIETY ET PAIN.
--- NOTE | 2019-03-24 06:47 | NUR ---
PATIENT SLEPT 11 HOURS
--- NOTE | 2019-03-24 08:00 | NUR ---
PT STILL ASLEEP THIS AM, PT HAS CRACKLES TO UPPER LOBES, IRREGULAR HEART BEAT. NO MOTTLING NOTED TO LOWER EXT. PT APPEARS COMFORTABLE, NO SIGNS OF DISTRESS.
[2019-03-24 08:46] VITALS: BP 94/60
[2019-03-24 09:00] VITALS: BP 94/60
--- NOTE | 2019-03-24 14:15 | NUR ---
PT AWAKE AND YELLING OUT. PT UNABLE TO TELL THIS NURSE IF HAVING ANY PAIN. PT STILL NOT OPENING EYES.
--- NOTE | 2019-03-24 14:20 | NUR ---
PT ABLE TO TAKE MEDS CRUSHED IN PUDDING. PT HAD HALF OF THE PUDDING AND FLUIDS OFFERED. PT SWALLOWED WITHOUT COUGHING. WAITING FOR HOSPICE TO SEE PT.
[2019-03-24 14:30] VITALS: BP 93/50
--- NOTE | 2019-03-24 14:37 | NUR ---
HOSPICE HERE NOW AT THIS.
--- NOTE | 2019-03-24 16:08 | NUR ---
ADRIANNA left a voicemail with pt daughter Merly concerning her mother health condition deterioating. ADRIANNA explained that her mother needs to be put on hospice immediately. ADRIANNA provided contact information inresquested a call back.
--- NOTE | 2019-03-24 16:37 | NUR ---
SW left a voicemail for pt son Andres Hardy concerning his mother health. SW provided contact information in requested a call back. ADRIANNA will follow-up with pt on tomorrow, March 24, 2019.
--- NOTE | 2019-03-24 16:51 | NUR ---
SW called in spoke with pt son Andres concerning his mother health. SW mention that we hav reached out to Hospice. ADRIANNA explained that Dr. Menjivar, and SW has not been successful with reaching his sister. SW mention that this is the time that the family come in visit with the pt. SW will follow-up with the family.
--- NOTE | 2019-03-24 17:48 | NUR ---
PT HAS BEEN IN BED ALL DAY, TURNED AND CLEANED EVERY 2 HOURS. PT WAS DENIED FOR HOSPICE AT THIS TIME. PT FINGERS ARE VERY COLD AND OXYGEN ON ROOM AIR BETWEEN 88-94%. PT CRIES OUT PERIODICALLY.
--- NOTE | 2019-03-24 18:25 | NUR ---
HEIDE HERE TO SEE HER MOTHER. PLACED OXYGEN 2L NC ON FOR COMFORT, HANDS ARE NOT COLD EARLIER. PT MOVED HEAD WHEN HEARD HER DAUGHTERS VOICE.
[2019-03-24 19:56] VITALS: BP 96/45
--- NOTE | 2019-03-24 21:12 | NUR ---
PT RESTING IN BED UPON ARRIVAL TO SHIFT. DAUGHTER AT BEDSIDE PT WAS SLEEPING. PT YELLING AND GROANING WITH ADL CARE SO PRN FOR PAIN RELIEF PROVIDED. PTS GRANDCHILDREN ALSO VISITED. PT STARTED GROANING AND RESTLESS PRN ATIVAN PROVIDED, WITH RELIEF. PT COMPLIANT [facility]. VISITED WITH DAUGHTER AND MEDICATIONS WERE DCD AFTER VISIT.
--- NOTE | 2019-03-24 23:21 | NUR ---
PT GROANING AND YELLING OUT PRN FOR PAIN PROVIDED.
--- NOTE | 2019-03-25 14:49 | NUR ---
Patient Name: KIMMIE HUTTON Admission Date: 02/16/19 DISCHARGE PLAN: Pt will be d/c to Hospice Care Assessment: Pt was assessed by Dr. Menjivar, and diagnosed with Majpr Neurocognitive Disorder with Failure Thrive. Level II Assessment: None Transportation: Pt will be transported by [facility] with a stretcher and O2. Special Instructions/Notes: Pt will need hospice with comfort care, and pallative care. DISCHARGE TO FACILITY: Hospice Facility: Hospice Fax: Address: [address] [place] [phone] Contact Name: Mercedes PCP: [facility] Psychiatrist:
--- NOTE | 2019-03-25 16:29 | NUR ---
ADRIANNA spoke with Mercedes concerning pt been accepted into Hospice. Pt will need to be transported by stretcher. Pt will be d/c on today at 1830. ADRIANNA has schedule transportation. ADRIANNA called in spoke with pt daughter concerning d/c to hospice care.
--- NOTE | 2019-03-25 20:35 | NUR ---
PATIENT DISCHARGED VIA TRANSPORT TO [facility]. DAUGHTER WITH HER - ALL POSSESSIONS SENT WITH PATIENT AND VERIFIED BY DAUGHTER. ATIVAN 2 MG ADMINISTERED AT 1815 PRIOR TO BEING SENT TO FACILITY. PATIENT UNABLE TO OBTAIN VITALS - SEDATED BUT RESTLESS. PATIENT SENT ON 2L OF OXYGEN VIA [facility]. ALL PAPERWORK SIGNED AND REVIEWED.
--- NOTE | 2019-03-27 10:33 | D ---
[facility] [address] [place] [address] DISCHARGE SUMMARY Name: KIMMIE HUTTON Room #: 520B-B [facility] IN M.R.#: [id number] Admission: 02/16/19 Attend Phys: Elan Menjivar DO Discharge: 03/25/19 Date of : 37 Report #: [id number] THIS REPORT FOR: //name// CC: Elan Sotelo DATE OF SERVICE: 03/25/2019 ATTENDING: Elan Menjivar DO. MERCURY WASHER AT THE TIME OF DISCHARGE: Elan Chin MD. DISCHARGE DIAGNOSES: Major neurocognitive disorder, congestive heart failure, current decompensation. DISPOSITION: The patient was discharged to [facility]. The patient was an excellent candidate for end of life care. So, I believe her life expectancy is only a number of days. The patient is currently n.p.o. not able to swallow. REASON FOR ADMISSION: She was initially sent from [facility] in [place] with disorganization, psychosis including agitated and aggressive behavior. HOSPITAL COURSE: The patient was admitted to [facility] Unit. Initially, we did have some challenges with sundowning. The main delay of discharge was inability to get another nursing facility to take her. The patient declined considerably in her functional level throughout. In general, laboratories this admission last saw Hematology on 03/10/2019 H and H of 0.2 and 36.4, white count 7.4, platelets 346. Coags last INR was 1.3, February 21, but later Coumadin was discontinued. Electrolytes on 02/16/2019, sodium 137, potassium 3.9, chloride 101, bicarbonate 33, BUN 18, creatinine 0.8, estimated GFR 69, calcium 9.2. Urine was clean. She did have an episode of emesis but there was positive occult blood. She was treated with high dose PPI throughout the admission. MENTAL STATUS EXAMINATION: Not possible. Other than the patient is essentially sleeping, minimally arousable, minimally responsive, felt to be in a terminal delirium at this point. Prognosis is terminal. Her daughter, Merly, was at [address] [place] [address] DISCHARGE SUMMARY Name: KIMMIE HUTTON Room #: 520B-B [facility] IN ..#: [id number] Admission: 02/16/19 Attend Phys: Elan Menjivar DO Discharge: 03/25/19 Date of : 37 Report #: [id number] bedside today. I have discussed management with her. As of yesterday, hospice also has had refused the patient. <ELECTRONICALLY SIGNED> By: Elan Menjivar DO 03/27/19 1033 57 12 Elan Menjivar DO /nt
== END 2019-03-25 20:38 | disposition hospice, home (50) | DRG 884 ==
LOC: SBH 18:59
PROVIDERS: ADMIT Psychiatry & Neurology Psychiatry
DX: F01.50 Vascular dementia, unspecified severity, without behavioral disturbance, psychotic disturbance, mood disturbance, and anxiety (principal); F02.81 Dementia in other diseases classified elsewhere, unspecified severity, with behavioral disturbance; E44.0 Moderate protein-calorie malnutrition; G30.9 Alzheimer's disease, unspecified; I50.9 Heart failure, unspecified; I48.91 Unspecified atrial fibrillation; F32.9 Major depressive disorder, single episode, unspecified; H61.21 Impacted cerumen, right ear; I48.2 Chronic atrial fibrillation; J44.9 Chronic obstructive pulmonary disease, unspecified; K21.9 Gastro-esophageal reflux disease without esophagitis; M19.90 Unspecified osteoarthritis, unspecified site; Z79.01 Long term (current) use of anticoagulants; Z79.82 Long term (current) use of aspirin; Z79.899 Other long term (current) drug therapy; Z68.22 Body mass index [BMI] 22.0-22.9, adult; Z88.0 Allergy status to penicillin
CPT/HCPCS: 10880